=== PATIENT | female | born 1960 | race Caucasian/White ===

== ENCOUNTER → 2017-06-02 | Day surgery (SDC) | payer BC ==
[~2017-06-02] MED LIST: ALUMINUM/MAGNESIUM/SIMETH 30 ML CUP ONE; KETOROLAC TROMETHAMINE 30 MG/ML (IVP) VIAL IV PUSH ONE; KETOROLAC TROMETHAMINE 30 MG/ML (IVP) VIAL ONE; LACTATED RINGER'S 1000 ML INJ 1,000 ML ONE; MIDAZOLAM HCL 2 MG/2 ML VIAL ONE; MORPHINE SULFATE 4 MG/ML INJ ONE; ONDANSETRON HCL 4 MG/2 ML VIAL IV PUSH ONE; PROMETHAZINE INJ 25 MG/ML VIAL ONE; PROPOFOL 200 MG/20 ML AMP IV ONE; ceFAZolin INJ 1,000 MG VIAL ONE; oxyCODONE/ACETAMINOPHEN 5 MG/325 MG TAB ONE
--- NOTE | 2017-06-04 09:28 | TN ---
cc: POLLO CISSE DATE OF SURGERY 06/02/2017 PREOPERATIVE DIAGNOSIS Postmenopausal bleeding, thickened endometrium, leiomyomata uteri. POSTOPERATIVE DIAGNOSIS Postmenopausal bleeding, thickened endometrium, leiomyomata uteri. PROCEDURE Hysteroscopy and D&C. SURGEON Pollo Cisse MD ANESTHESIA General ESTIMATED BLOOD LOSS 30 cc COMPLICATIONS None FINDINGS The patient had a uterus that sounded to 10-1/2 cm. On hysteroscopy, she was noted to have an irregular shaped endometrial cavity consistent with submucosal fibroids. Both tubal ostia were seen and unremarkable. The lining of the endometrial cavity actually appeared somewhat thinned out. There may have been a very tiny polyp in the right lower uterine segment subcentimeter in size that could not be grasped with polyp forceps and so was removed with the curettage. DESCRIPTION OF PROCEDURE The patient brought into the operating room and following general anesthesia was placed in the dorsal lithotomy position. Her vagina, abdomen and perineum were prepped and draped. The cervix was grasped with a single-tooth tenaculum on the anterior lip and was dilated to allow passage of the 5 mm hysteroscope. The uterus was sounded and the hysteroscope was placed with the findings as noted above. The hysteroscope was removed and a four quadrant curettage was performed. We attempted to grasp the small polyp in the right lower uterine segment prior the curettage, but were unable to do so. We, therefore, took particular attention with the curettage in this area to remove the tissue if indeed it was a polyp. With bleeding scant and all instruments accounted for, all instruments were removed and the patient taken to the Recovery Room in good condition. She will be discharged home when stable and alert to follow up in one week in our office. Her discharge medication is Percocet. She is given instructions on physical activity, instructed to resume a regular diet as tolerated. MD WESLEY Paige/YURI /12:48 PM /9:15 AM
== END | disposition home or self-care (01) ==
LOC: ESDC 11:11
PROVIDERS: ATTEND Obstetrics & Gynecology
DX: N95.0 Postmenopausal bleeding (principal); R93.8 Abnormal findings on diagnostic imaging of other specified body structures; D25.9 Leiomyoma of uterus, unspecified
CPT/HCPCS: 00952; 58558; 88305; J0690; J1885; J2250; J2270; J2405; J2550; J3010; J7120

== ENCOUNTER → 2017-09-29 | Day surgery (SDC) | payer BC ==
[~2017-09-29] MED LIST changes: -ALUMINUM/MAGNESIUM/SIMETH 30 ML CUP ONE; -KETOROLAC TROMETHAMINE 30 MG/ML (IVP) VIAL IV PUSH ONE; -KETOROLAC TROMETHAMINE 30 MG/ML (IVP) VIAL ONE; +LACTATED RINGER'S 1000 ML INJ 0 ML ONE; -LACTATED RINGER'S 1000 ML INJ 1,000 ML ONE; -MIDAZOLAM HCL 2 MG/2 ML VIAL ONE; -MORPHINE SULFATE 4 MG/ML INJ ONE; -ONDANSETRON HCL 4 MG/2 ML VIAL IV PUSH ONE; -PROMETHAZINE INJ 25 MG/ML VIAL ONE; -PROPOFOL 200 MG/20 ML AMP IV ONE; -oxyCODONE/ACETAMINOPHEN 5 MG/325 MG TAB ONE
== END | disposition home or self-care (01) ==
LOC: ESDC 08:01
PROVIDERS: ATTEND Obstetrics & Gynecology
DX: N92.0 Excessive and frequent menstruation with regular cycle (principal); Z53.8 Procedure and treatment not carried out for other reasons
CPT/HCPCS: J0690; J7120

== ENCOUNTER → 2017-10-02 | Day surgery (SDC) | payer BC ==
[~2017-10-02] MED LIST changes: +APREPITANT 40 MG CAP ONE; +KETOROLAC TROMETHAMINE 30 MG/ML (IVP) VIAL IV PUSH ONE; -LACTATED RINGER'S 1000 ML INJ 0 ML ONE; +MIDAZOLAM HCL 2 MG/2 ML VIAL ONE; +ONDANSETRON HCL 4 MG/2 ML VIAL IV PUSH ONE; +PROPOFOL 200 MG/20 ML AMP IV ONE
--- NOTE | 2017-10-07 12:53 | TN ---
cc: POLLO CISSE DATE OF SURGERY 10/02/2017 PREOPERATIVE DIAGNOSIS Endometrial hyperplasia, leiomyomata uteri. POSTOPERATIVE DIAGNOSIS Endometrial hyperplasia, leiomyomata uteri. PROCEDURE Hysteroscopy, MyoSure resection of endometrium and fibroid. SURGEON Pollo Cisse MD ANESTHESIA General ESTIMATED BLOOD LOSS 30 cc COMPLICATIONS None FINDINGS The patient's endocervical canal was unremarkable. The endometrial lining appeared relatively normal though there perhaps was some thickening over the fibroids that were noted on the lower anterior wall of the uterus. I resected this entire area of endometrium and a good portion of the fibroid tissue. The endometrial lining above the area of the fibroid in the actual fundus of the uterus appeared atrophic. DESCRIPTION OF PROCEDURE The patient brought to the operating room, following general anesthesia was placed in the dorsal lithotomy position. Her vagina, abdomen and perineum were prepped and draped. The cervix was grasped with a single-tooth tenaculum and dilated to allow passage of the hysteroscope. The findings were as noted above. The MyoSure device was brought into place and resection of the endometrium that appeared slightly thickened in the lower uterine segment was performed easily. We then also resected a good portion of the fibroid tissue underneath. With no other significant pathology present, all instruments removed and the patient was taken to the Recovery Room in good condition with all counts correct. She will be discharged home when stable and alert to be followed up in one week in our office. Her discharge medication is Percocet. She is given instructions on physical activity and instructed to resume a regular diet as tolerated. MD WESLEY Paige/DJL /12:09 PM /12:38 PM
== END | disposition home or self-care (01) ==
LOC: ESDC 11:01
PROVIDERS: ATTEND Obstetrics & Gynecology
DX: N85.00 Endometrial hyperplasia, unspecified (principal); D25.9 Leiomyoma of uterus, unspecified
CPT/HCPCS: 00952; 58561; 88305; J0690; J1885; J2250; J2405; J3010; J8501